=== PATIENT | female | born 1995 | race African-American/Black ===

== ENCOUNTER 2018-07-30 17:06 | Emergency (ER) | payer SELFPAY ==
[~2018-07-30] VITALS: Ht 170.2 cm; Wt 98.3 kg
[~2018-07-30 17:06] MED LIST: CALC-141 PO; DOCU-131 PO; HYDR1TAB12 PO; IBUP-1222 PO; NITR100C PO; OXYC-302 PO; PREN1TAB60 PO
[2018-07-30 17:09] VITALS: BP 131/81
[2018-07-30] MEDS ORDERED: KETOROLAC 30 MG/1 ML ONE (17:43)
[2018-07-30] MEDS ORDERED: KETOROLAC 30 MG/1 ML IM ONE (18:00)
== END 2018-07-30 18:57 | disposition home or self-care (01) ==
LOC: ED 18:29
DX: S46.012A Strain of muscle(s) and tendon(s) of the rotator cuff of left shoulder, initial encounter (principal); F17.200 Nicotine dependence, unspecified, uncomplicated; X58.XXXA Exposure to other specified factors, initial encounter; Y93.89 Activity, other specified; Y92.59 Other trade areas as the place of occurrence of the external cause; Y99.8 Other external cause status
CPT/HCPCS: 73030; 96372; 99284; J1885

== ENCOUNTER 2018-11-14 14:47 | Emergency (ER) | payer SELFPAY ==
[~2018-11-14] VITALS: Ht 167.6 cm; Wt 97.3 kg
--- NOTE | 2018-11-14 15:19 | NUR ---
Pt to imaging, with tech, on nathanael.
[2018-11-14 16:22] VITALS: BP 99/65
== END 2018-11-14 16:22 | disposition home or self-care (01) ==
LOC: ED 16:16
DX: M79.671 Pain in right foot (principal); J02.8 Acute pharyngitis due to other specified organisms; M79.18 Myalgia, other site; Z88.1 Allergy status to other antibiotic agents; Z88.2 Allergy status to sulfonamides; Z88.8 Allergy status to other drugs, medicaments and biological substances
CPT/HCPCS: 71046; 99283

== ENCOUNTER 2019-10-13 12:47 | Emergency (ER) ==
[~2019-10-13] VITALS: Ht 170.2 cm; Wt 98.7 kg
[~2019-10-13 12:47] MED LIST changes: -HYDR1TAB12 PO; +HYDR1TAB13 PO
[2019-10-13 12:56] VITALS: BP 135/46
--- NOTE | 2019-10-13 13:06 | NUR ---
PT HERE WITH C/O JAW PAIN ON LEFT SIDE. PT STATES SEEN HERE APPROX. 1 MONTH AGO AND DIAGNOSED WITH TMJ AND WAS SENT HOME WITH MEDS THAT ARE NO LONGER WORKING.
[2019-10-13] MEDS ORDERED: KETOROLAC 30 MG/1 ML ONE (13:25)
[2019-10-13] MEDS ORDERED: CYCLOBENZAPRINE 10 MG TABLET ONE (13:25)
--- NOTE | 2019-10-13 13:29 | NUR ---
PT MEDICATED PER MAR.
[2019-10-13] MEDS ORDERED: CYCLOBENZAPRINE 10 MG TABLET PO ONE (13:30)
[2019-10-13] MEDS ORDERED: KETOROLAC 30 MG/1 ML IM ONE (13:30)
--- NOTE | 2019-10-13 13:52 | NUR ---
PT BACK FROM RADIOLOGY.
--- NOTE | 2019-10-13 14:17 | NUR ---
ALL RESULTS BACK AT THIS TIME, CHART UP FOR RECHECK.
== END 2019-10-13 14:25 ==
LOC: ED 14:15
DX: M26.622 Arthralgia of left temporomandibular joint (principal)
CPT/HCPCS: 70100; 96372; 99283; J1885

== ENCOUNTER 2021-02-15 20:21 | Emergency (ER) | payer MEDICAID, OTHER ==
[~2021-02-15] VITALS: Ht 170.2 cm; Wt 111.3 kg
[~2021-02-15 20:21] MED LIST changes: -OXYC-302 PO; +OXYC1TAB14 PO
[2021-02-15 20:27] VITALS: BP 117/64
[2021-02-15] MEDS ORDERED: ONDANSETRON ODT 8 MG PO ONE (21:00)
[2021-02-15] MEDS ORDERED: ONDANSETRON ODT 8 MG ONE (21:10)
--- NOTE | 2021-02-15 21:18 | NUR ---
pt has c/o n/v for the last couple days. pt a/o x4 with unlabored breaths. pt on monitor with vss. pt medicated per jan. [facility]
[2021-02-15 21:24] LABS: RAPID INFLUENZA A Negative (Negative); RAPID INFLUENZA B Negative (Negative)
--- NOTE | 2021-02-15 21:56 | NUR ---
pt passed po challenge
== END 2021-02-15 21:56 | disposition home or self-care (01) ==
LOC: ED 21:50
DX: B34.9 Viral infection, unspecified (principal); Z20.822 Contact with and (suspected) exposure to COVID-19; R11.2 Nausea with vomiting, unspecified; R19.7 Diarrhea, unspecified; M79.10 Myalgia, unspecified site; Z88.8 Allergy status to other drugs, medicaments and biological substances
CPT/HCPCS: 87400; 99283; Q0162; U0003

== ENCOUNTER 2021-04-18 12:29 | Emergency (ER) | payer MEDICAID ==
[~2021-04-18] VITALS: Ht 170.2 cm; Wt 111.8 kg
--- NOTE | 2021-04-18 13:51 | NUR ---
Awaiting ED room assignment. preparatory technician going to recheck VS and report results back to chuck wagon driver now.
[2021-04-18 14:02] VITALS: BP 120/75
--- NOTE | 2021-04-18 15:05 | NUR ---
Pt no longer in lobby. Noted pt elopement with auditor in charge and PA that had seen her in [facility].
== END 2021-04-18 15:07 | disposition left against medical advice (07) ==
LOC: ED 14:00
DX: H92.02 Otalgia, left ear (principal)
CPT/HCPCS: 99281

== ENCOUNTER 2021-04-24 00:23 | Emergency (ER) | payer MEDICAID ==
[~2021-04-24] VITALS: Ht 170.2 cm; Wt 114.0 kg
[2021-04-24 00:26] VITALS: BP 137/74
--- NOTE | 2021-04-24 00:35 | NUR ---
break rn: "i have tooth pain on my right side and jaw pain on the left where the joint is." tooth pain right upper side x2hrs, no swelling noted, and left jaw pain at joint x1wk. took alleve earlier today and states it did not help. pt resting on alexandr huffman, wilfred.
[2021-04-24] MEDS ORDERED: LIDOCAINE-MPF 1%, 5ML INFIL ONE (01:30)
[2021-04-24] MEDS ORDERED: LIDOCAINE-MPF 1%, 5ML ONE (01:43)
[2021-04-24] MEDS ORDERED: BUPIVACAINE 0.25% ONE (01:43)
[2021-04-24] MEDS ORDERED: LIDOCAINE-MPF 1%, 2ML ONE (01:44)
--- NOTE | 2021-04-24 02:34 | NUR ---
MD to bedside and injected affected tooth, and relieved the pain. pt tolerated well. to be d/c.
--- NOTE | 2021-04-24 02:38 | NUR ---
F/U AND D/C INSTRUCTIONS GIVEN TO PT AND SHE V/U. PT AMBULATORY AND D/C'D WITHOUT INCIDENT.
== END 2021-04-24 02:43 | disposition home or self-care (01) ==
LOC: ED 01:43
DX: K02.9 Dental caries, unspecified (principal); K08.89 Other specified disorders of teeth and supporting structures; Z87.891 Personal history of nicotine dependence
CPT/HCPCS: 64400; 99284

== ENCOUNTER 2021-05-17 22:14 | Emergency (ER) | payer MEDICAID ==
[~2021-05-17] VITALS: Ht 170.2 cm; Wt 110.0 kg
[2021-05-17 22:21] VITALS: BP 145/62
[2021-05-18] MEDS ORDERED: BENZONATATE 100 MG CAPSULE PO ONE
[2021-05-18] MEDS ORDERED: IBUPROFEN 800 MG TABLET PO ONE
[2021-05-18] MEDS ORDERED: IBUPROFEN 800 MG TABLET ONE (00:05)
[2021-05-18] MEDS ORDERED: BENZONATATE 100 MG CAPSULE ONE (00:06)
--- NOTE | 2021-05-18 00:22 | NUR ---
Pt swabbed for COVID. Specimen walked to lab.
== END 2021-05-18 01:48 | disposition home or self-care (01) ==
LOC: ED 23:50
DX: J06.9 Acute upper respiratory infection, unspecified (principal); H66.001 Acute suppurative otitis media without spontaneous rupture of ear drum, right ear; Z20.822 Contact with and (suspected) exposure to COVID-19; Z72.9 Problem related to lifestyle, unspecified
CPT/HCPCS: 71045; 99284; U0003; U0005

== ENCOUNTER 2021-05-26 20:27 | Emergency (ER) | payer MEDICAID ==
[~2021-05-26] VITALS: Ht 170.2 cm; Wt 111.6 kg
--- NOTE | 2021-05-26 21:20 | NUR ---
SUPERVISOR RESIDENTIAL: PT. TO ROOM FROM LOBBY AT THIS TIME. AMBULATORY WITH STEADY GAIT.
--- NOTE | 2021-05-26 21:39 | NUR ---
THIS IS A 26 YO F W/ C/O LT JAW PAIN, SWELLING. PT REPORTS HX OF [facility] IN SAME LOCATION. PT REPORTS PAIN W/ SWALLOWING AND CHEWING. PT RESTING ON GURNEY W/ CALL LIGHT IN REACH AND SIDE RAILS UPX2. AIDAN INFANTE. AWAITING ED EVAL.
[2021-05-26] MEDS ORDERED: BUPIVACAINE 0.25% INFIL ONE (22:30)
[2021-05-26] MEDS ORDERED: BUPIVACAINE 0.25% ONE (22:37)
[2021-05-26] MEDS ORDERED: LIDOCAINE-MPF 1%, 5ML ONE (22:38)
[2021-05-26 22:39] VITALS: BP 115/89
[2021-05-26] MEDS ORDERED: LIDOCAINE 1%, 2ML INFIL ONE (23:00)
--- NOTE | 2021-05-26 23:03 | NUR ---
SURGEON AT BEDSIDE.
== END 2021-05-26 23:16 | disposition home or self-care (01) ==
LOC: ED 21:50
DX: K08.89 Other specified disorders of teeth and supporting structures (principal); R51.9 Headache, unspecified; R00.0 Tachycardia, unspecified
CPT/HCPCS: 64400; 93005; 99284

== ENCOUNTER 2021-07-05 14:21 | Emergency (ER) | payer MEDICAID ==
[~2021-07-05] VITALS: Ht 170.2 cm; Wt 109.9 kg
[2021-07-05 14:49] VITALS: BP 104/68
[2021-07-05] MEDS ORDERED: DEXAMETHASONE 4 MG/ML, 5ML ONE ×2 (15:00→15:06)
[2021-07-05] MEDS ORDERED: DEXAMETHASONE 4 MG/ML, 1ML PO ONE (15:00)
[2021-07-05] MEDS ORDERED: PLEASE ENTER HEIGHT AND WEIGHT MC SCH (15:00)
--- NOTE | 2021-07-05 15:11 | NUR ---
JAY[employer] SALES MEDICATING PT.
== END 2021-07-05 15:23 | disposition home or self-care (01) ==
LOC: ED 14:35
DX: B34.9 Viral infection, unspecified (principal); Z20.822 Contact with and (suspected) exposure to COVID-19; F17.210 Nicotine dependence, cigarettes, uncomplicated
CPT/HCPCS: 99283; 99406; J1100; U0003; U0005